=== PATIENT | female | born 1985 | race Caucasian/White ===

== ENCOUNTER 2025-09-24 15:22 | Outpatient (REF) | payer BC, SELFPAY ==
[2025-09-24 21:04] LABS: Hemoglobin A1C 5.2 % (<5.7)
[2025-09-24 21:07] LABS: ALT 28 U/L (10-49); AST 26 U/L (<34); Albumin 4.9 g/dL (3.2-5.0); Alkaline Phosphatase 81 U/L (46-116); Anion Gap 9.4 mmol/L (3-11); BUN 12 mg/dL (9-23); Bilirubin, Total 0.30 mg/dL (0.2-1.2); CO2 28.6 mmol/L (20.0-31.0); Calcium 9.9 mg/dL (8.3-10.6); Chloride 101 mmol/L (98-107); Cholesterol 216 mg/dL (<200); Glucose 84 mg/dL (74-106); HDL Cholesterol 61 mg/dL (>40); Potassium 4.0 mmol/L (3.5-5.1); Sodium 139 mmol/L (136-145); Total Protein 7.7 g/dL (5.7-8.2)
== END 2025-09-24 15:23 | disposition home or self-care (01) ==
LOC: NCHCN 15:22
PROVIDERS: Visit Provider Family Medicine
DX: Z13.1 Encounter for screening for diabetes mellitus (principal); E66.9 Obesity, unspecified
CPT/HCPCS: 80053; 80061; 83036